=== PATIENT | female | born 1975 | race African-American/Black ===

== ENCOUNTER 2017-05-31 17:01 | Emergency (ER) | payer OTHER, BC ==
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
[~2017-05-31 17:01] MED LIST: BACTRIM DS TABL1 TA1 PO; CELEXA10 MG PO; IBUPROFEN; IRON1 TA1 PO; LORTAB 7.5-5001 TAB PO; OMEPRAZOLE20 M2 PO; PREVACID15 M1 PO; PYRIDIUM100 MG PO; REMERON PO; ZANTAC
[2017-05-31] MEDS ORDERED: BCP (17:05)
== END 2017-05-31 18:24 | disposition home or self-care (01) ==
LOC: SED 17:01
DX: S16.1XXA Strain of muscle, fascia and tendon at neck level, initial encounter (principal); S29.012A Strain of muscle and tendon of back wall of thorax, initial encounter; F17.210 Nicotine dependence, cigarettes, uncomplicated; V49.40XA Driver injured in collision with unspecified motor vehicles in traffic accident, initial encounter
CPT/HCPCS: 72040; 72072; 99284